=== PATIENT | male | born 1990 | race Caucasian/White ===

== ENCOUNTER 2019-07-09 14:53 | Emergency (ER) | payer SELFPAY ==
[~2019-07-09] VITALS: Ht 182.9 cm; Wt 86.2 kg
[2019-07-09 15:10] VITALS: BP 135/86
== END 2019-07-09 17:10 | disposition left against medical advice (07) ==
LOC: ER 14:53
DX: M79.672 Pain in left foot (principal)
CPT/HCPCS: 73610; 93971